=== PATIENT | male | born 1965 | race Two or more races ===

== ENCOUNTER 2021-11-30 09:32 | Outpatient (CLI) | payer OTHER ==
[~2021-11-30 09:32] MED LIST: ACET-3068 PO
== END 2021-11-30 23:59 | disposition home or self-care (01) ==
LOC: RAD 09:32 → EEVIPCON 11:00 → RAD 23:59
PROVIDERS: ATTEND Family Medicine
DX: R56.9 Unspecified convulsions (principal)
CPT/HCPCS: 95816